=== PATIENT | male | born 2000 | race Caucasian/White ===

== ENCOUNTER → 2025-06-20 | Outpatient (REF) | payer OTHER ==
[2025-06-20 09:56] LABS: SEMEN APPEARANCE OPAQUE (OPAQUE); SEMEN VOLUME 4.0 ml (2.0-5.0)
[2025-06-20 09:57] LABS: SEMEN VISCOSITY LIQUID (LIQUID); WBC CONCENTRATION >1 M/ml (<=1 M/ml)
[2025-06-20 09:58] LABS: SPERM CONCENTRATION 67.9 M/ml (>=15.0)
[2025-06-20 09:59] LABS: TOTAL PROGRESSIVE SPERM 145.8 M/Ejac.
== END ==
LOC: M LAB REF 09:07
DX: Z31.41 Encounter for fertility testing (principal)

== ENCOUNTER → 2025-07-20 | Outpatient (REF) | payer OTHER ==
[2025-07-20 13:46] LABS: SEMEN APPEARANCE OPAQUE (OPAQUE); SEMEN VISCOSITY LIQUID (LIQUID); SEMEN VOLUME 4.6 ml (2.0-5.0); SPERM CONCENTRATION 185.5 M/ml (>=15.0); WBC CONCENTRATION <=1 M/ml (<=1 M/ml)
[2025-07-20 13:47] LABS: TOTAL PROGRESSIVE SPERM 333.7 M/Ejac.
== END ==
LOC: M LAB REF 13:23
DX: Z31.41 Encounter for fertility testing (principal)

== ENCOUNTER → 2025-07-27 | Outpatient (REF) | payer OTHER ==
[2025-07-27 09:10] LABS: SEMEN APPEARANCE OPAQUE (OPAQUE); SEMEN VISCOSITY LIQUID (LIQUID); SEMEN VOLUME 2.6 ml (2.0-5.0); SPERM CONCENTRATION 58.2 M/ml (>=15.0); TOTAL PROGRESSIVE SPERM 87.0 M/Ejac.; WBC CONCENTRATION >1 M/ml (<=1 M/ml)
== END ==
LOC: M LAB REF 08:49
DX: Z31.41 Encounter for fertility testing (principal)

== ENCOUNTER → 2025-08-10 | Outpatient (REF) | payer OTHER ==
[2025-08-10 11:11] LABS: SEMEN APPEARANCE OPAQUE (OPAQUE); SEMEN VISCOSITY LIQUID (LIQUID); SEMEN VOLUME 3.2 ml (2.0-5.0); SPERM CONCENTRATION 91.5 M/ml (>=15.0); WBC CONCENTRATION >1 M/ml (<=1 M/ml)
[2025-08-10 11:12] LABS: TOTAL PROGRESSIVE SPERM 180.1 M/Ejac.
== END ==
LOC: M LAB REF 11:04
DX: N46.9 Male infertility, unspecified (principal)

== ENCOUNTER → 2025-10-08 | Outpatient (CLI) | payer OTHER ==
[~2025-10-08] MED LIST: E-Z-GAS II EFFERVESCENT PACKET (SODIUM BICARB./CITRIC ACID/SIMETHICONE) As Ordered ONE; E-Z-HD 98% w/w 340 GM SUSP BTL As Ordered ONE; E-Z-PAQUE 96% w/w SUSP 176 GM BTL As Ordered ONE
== END ==
LOC: M RAD 08:10
PROVIDERS: ATTEND Allergy & Immunology
DX: R13.10 Dysphagia, unspecified (principal)